=== PATIENT | female | born 1970 | race Caucasian/White ===

== ENCOUNTER 2017-03-23 00:56 | Inpatient (IN) | payer MEDICAID ==
[2017-03-23] MEDS ORDERED: 0.9 % SODIUM CHLORIDE 1,000 ML BAG IV ONE (01:20)
[2017-03-23 01:42] LABS: URINE APPEARANCE CLEAR; URINE BILIRUBIN NEGATIVE (NEGATIVE); URINE BLOOD NEGATIVE (NEGATIVE); URINE COLOR YELLOW; URINE GLUCOSE (UA) NEGATIVE (NEGATIVE); URINE KETONE NEGATIVE (NEGATIVE); URINE LEUKOCYTE ESTERASE NEGATIVE (NEGATIVE); URINE NITRITE NEGATIVE (NEGATIVE); URINE PROTEIN NEGATIVE (NEGATIVE); URINE UROBILINOGEN 0.2 E.U./dL (0.20 - 1.00)
[2017-03-23 01:42] LABS: BASO % 0.6 % (0-6); EOS % 1.5 % (0-6); GRAN % 60.3 % (47-80); HEMATOCRIT 38.5 % (35.0-47.0); HEMOGLOBIN 13.7 gm/dl (11.6-16.0); LYMPH % 25.5 % (16-45); MEAN CORPUSCULAR HEMOGLOBIN 35.6 pg (27-33); MEAN CORPUSCULAR HGB CONC 35.6 g/dl (32-36); MEAN PLATELET VOLUME 9.2 fl (7.4-10.4); MONO % 12.1 % (0-9); PLATELET COUNT 290 K/uL (130-400); RED BLOOD COUNT 3.85 M/uL (3.80-5.40); RED CELL DISTRIBUTION WIDTH 13.1 % (11.5-14.5); WHITE BLOOD COUNT W/O DIFF 8.8 K/uL (4.2-12.2)
[2017-03-23 01:54] LABS: ALB/GLOB RATIO 1.3 (1.1-1.8); ALBUMIN 4.1 gm/dL (3.5-5.0); ALKALINE PHOSPHATASE 130 U/L (38-126); ALT/SGPT 49 U/L (9-52); ANION GAP 13.6 (7-16); AST/SGOT 40 U/L (14-36); BILIRUBIN,TOTAL 0.42 mg/dL (0.2-1.3); BLOOD UREA NITROGEN 3 mg/dL (7-17); CARBON DIOXIDE 25.4 mmol/L (22-30); CREATININE 0.4 mg/dL (0.52-1.04); EST GLOMERULAR FILTRATION RATE > 60 ml/min; GLUCOSE,RANDOM 100 mg/dL (70-110); LIPASE 672 U/L (23-300); TOTAL PROTEIN 7.3 gm/dL (6.3-8.2)
--- NOTE | 2017-03-23 02:23 | Emergency Department Record ---
History of Present Illness - General Chief Complaint: Abdominal Pain Stated Complaint: CONSTIPATION ABD PAIN Time Seen by Provider: 03/23/17 01:16 Source: Patient, EMS Mode of Arrival: EMS Limitations: No limitations - History of Present Illness Initial Comments: pt has had abd pain for 2 days mostly in the midepigastric region. she denies vomiting/c/d. she drinks alcohol daily MD Complaint: Abdominal pain Onset/Timin -: Days(s) Location: Diffuse, Epigastric Radiation: None Migration to: No migration Severity: Mild Quality: Other Consistency: Constant Improves With: Rest Worsens With: Movement Associated Symptoms: Nausea - Related Data LMP (females 10-50): other Patient : No Home Medications Medication Instructions Recorded Confirmed Last Taken Ibuprofen [Ibuprofen] 1 tab PO ASDIR 03/23/17 03/23/17 Unknown Naproxen [Naproxen] 1 tab PO ASDIR 03/23/17 03/23/17 Unknown Allergies Allergy/AdvReac Type Severity Reaction Status Date / Time aspirin Allergy HIVES Verified 03/23/17 01:09 codeine Allergy HIVES Verified 03/23/17 01:09 "several different Allergy "I don't Uncoded 03/23/17 01:09 antibiotics" remember the names." Travel Screening - Travel/Exposure Within Last 30 Days Have you traveled within the last 30 days?: No - Travel/Exposure Within Last Year Have you traveled outside the [place] in the last year?: No - Additonal Travel Details Have you been exposed to anyone with a communicable illness?: No - Travel Symptoms Symptom Screening: None Review of Systems Reviewed: No additional complaints except as noted below Constitutional: Reports: As per HPI. Denies: Chills, Fever, Malaise, Night sweats, Weakness, Weight change Eyes: Reports: As per HPI. Denies: Eye discharge, Eye pain, Photophobia, Vision change ENT: Reports: As per HPI. Denies: Congestion, Dental pain, Ear pain, Epistaxis , Hearing loss, Throat pain Respiratory: Reports: As per HPI. Denies: Cough, Dyspnea, Hemoptysis, Stridor, Wheezes Cardiovascular: Reports: As per HPI. Denies: Arrhythmia, Chest pain, Dyspnea on exertion, Edema, Murmurs, Orthopnea, Palpitations, Paroxysmal nocturnal dyspnea, Rheumatic Fever, Syncope Endocrine: Reports: As per HPI. Denies: Fatigue, Heat or cold intolerance, Polydipsia, Polyuria Gastrointestinal: Reports: As per HPI. Denies: Abdominal pain, Constipation, Diarrhea, Hematemesis, Hematochezia, Melena, Nausea, Vomiting Genitourinary: Reports: As per HPI. Denies: Abnormal menses, Discharge, Dyspareunia, Dysuria, Frequency, Hematuria, Incontinence, Retention, Urgency Musculoskeletal: Reports: As per HPI. Denies: Arthralgia, Back pain, Gout, Joint swelling, Myalgia, Neck pain Skin: Reports: As per HPI. Denies: Bruising, Change in color, Change in hair/ nails, Lesions, Pruritus, Rash Neurological: Reports: As per HPI. Denies: Abnormal gait, Confusion, Headache, Numbness, Paresthesias, Seizure, Tingling, Tremors, Vertigo, Weakness Psychiatric: Reports: As per HPI. Denies: Anxiety, Auditory hallucinations, Depression, Homicidal thoughts, Suicidal thoughts, Visual hallucinations Hematological/Lymphatic: Reports: As per HPI. Denies: Anemia, Blood Clots, Easy bleeding, Easy bruising, Swollen glands Past Medical History - SOCIAL HISTORY Smoking Status: Current every day smoker Alcohol Use: Heavy Alcohol Use Comment: 6 beers/day Drug Use: Occasional Drug Use Detail:: Marijuana - RESPIRATORY Hx Respiratory Disorders: No - CARDIOVASCULAR Hx Cardio Disorders: No - NEURO Hx Neuro Disorders: No - GI Hx GI Disorders: No - Hx Genitourinary Disorders: No - ENDOCRINE Hx Endocrine Disorders: No - MUSCULOSKELETAL Hx Musculoskeletal Disorders: No Comment:: awaiting surgery on rt knee. - PSYCH Hx Psych Problems: No - HEMATOLOGY/ONCOLOGY Hx Hematology/Oncology Disorders: No Family Medical History Any Significant Family History?: Yes Family Hx Comment (NOT TO BE USED IN PLACE OF ITEMS BELOW): cancers Physical Exam - General General Appearance: Alert, Oriented x3, Cooperative, Mild distress - Head Head exam: Normal inspection - Eye Eye exam: Normal appearance, PERRL, EOMI Pupils: Normal accommodation - ENT ENT exam: Normal exam, Mucous membranes moist, Normal external ear exam, Normal orophraynx Ear exam: Normal external inspection. negative: External canal tenderness Nasal Exam: Normal inspection. negative: Discharge, Sinus tenderness Mouth exam: Normal external inspection, Tongue normal Teeth exam: Normal inspection. negative: Dental caries Throat exam: Normal inspection. negative: Tonsillar erythema, Tonsillar exudate - Neck Neck exam: Normal inspection, Full ROM. negative: Tenderness - Respiratory Respiratory exam: Normal lung sounds bilaterally. negative: Respiratory distress - Cardiovascular Cardiovascular Exam: Normal rhythm, Normal heart sounds, Tachycardia - GI/Abdominal GI/Abdominal exam: Soft, Normal bowel sounds, Tenderness (epigastric carlota) - Rectal Rectal exam: Deferred - exam: Deferred - Extremities Extremities exam: Normal inspection, Full ROM, Normal capillary refill. negative: Tenderness - Back Back exam: Reports: Normal inspection, Full ROM. Denies: Muscle spasm, Rash noted, Tenderness - Neurological Neurological exam: Alert, CN II-XII intact, Normal gait, Oriented X3 - Psychiatric Psychiatric exam: Normal affect, Normal mood - Skin Skin exam: Dry, Intact, Normal color, Warm Course Vital Signs 03/23/17 03/23/17 01:03 01:52 Temperature 98.6 F Pulse Rate 111 H Pulse Rate [ 99 H Pulse Ox Probe] Respiratory 20 20 Rate Blood Pressure 114/91 Blood Pressure 126/95 [Left Arm] Pulse Ox 96 100 Medical Decision Making - Lab Data Result diagrams: 03/23/17 01:35 03/23/17 01:35 Lab Results 03/23/17 03/23/17 03/23/17 Range/Units 01:35 01:35 01:35 WBC 8.8 (4.2-12.2) K/uL RBC 3.85 (3.80-5.40) M/uL Hgb 13.7 (11.6-16.0) gm/dl Hct 38.5 (35.0-47.0) % MCV 100.0 H (81-97) fl MCH 35.6 H (27-33) pg MCHC 35.6 (32-36) g/dl RDW 13.1 (11.5-14.5) % Plt Count 290 (130-400) K/uL MPV 9.2 (7.4-10.4) fl Gran % 60.3 (47-80) % Lymphocytes % 25.5 (16-45) % Monocytes % 12.1 H (0-9) % Eosinophils % 1.5 (0-6) % Basophils % 0.6 (0-6) % Sodium 137 (136-145) mmol/L Potassium 3.4 L (3.5-5.1) mmol/L Chloride 98 (98-107) mmol/L Carbon Dioxide 25.4 (22-30) mmol/L Anion Gap 13.6 (7-16) BUN 3 L (7-17) mg/dL Creatinine 0.4 L (0.52-1.04) mg/dL Estimated GFR > 60 ml/min Random Glucose 100 (70-110) mg/dL Calcium 8.9 (8.5-10.1) mg/dL Total Bilirubin 0.42 (0.2-1.3) mg/dL AST 40 H (14-36) U/L ALT 49 (9-52) U/L Alkaline Phosphatase 130 H (38-126) U/L Total Protein 7.3 (6.3-8.2) gm/dL Albumin 4.1 (3.5-5.0) gm/dL Globulin 3.2 (1.4-4.8) gm/dL Albumin/Globulin Ratio 1.3 (1.1-1.8) Lipase 672 H (23-300) U/L Urine Color Urine Appearance Urine pH (5.0-8.0) Ur Specific [place] (1.002-1.030) Urine Protein (NEGATIVE) Urine Glucose (UA) (NEGATIVE) Urine Ketones (NEGATIVE) Urine Blood (NEGATIVE) Urine Nitrite (NEGATIVE) Urine Bilirubin (NEGATIVE) Urine Urobilinogen (0.20 - 1.00) E.U./dL Ur Leukocyte Esterase (NEGATIVE) Ethyl Alcohol 0.213 H (0-0.010) g/dL 03/23/17 Range/Units 01:44 WBC (4.2-12.2) K/uL RBC (3.80-5.40) M/uL Hgb (11.6-16.0) gm/dl Hct (35.0-47.0) % MCV (81-97) fl MCH (27-33) pg MCHC (32-36) g/dl RDW (11.5-14.5) % Plt Count (130-400) K/uL MPV (7.4-10.4) fl Gran % (47-80) % Lymphocytes % (16-45) % Monocytes % (0-9) % Eosinophils % (0-6) % Basophils % (0-6) % Sodium (136-145) mmol/L Potassium (3.5-5.1) mmol/L Chloride (98-107) mmol/L Carbon Dioxide (22-30) mmol/L Anion Gap (7-16) BUN (7-17) mg/dL Creatinine (0.52-1.04) mg/dL Estimated GFR ml/min Random Glucose (70-110) mg/dL Calcium (8.5-10.1) mg/dL Total Bilirubin (0.2-1.3) mg/dL AST (14-36) U/L ALT (9-52) U/L Alkaline Phosphatase (38-126) U/L Total Protein (6.3-8.2) gm/dL Albumin (3.5-5.0) gm/dL Globulin (1.4-4.8) gm/dL Albumin/Globulin Ratio (1.1-1.8) Lipase (23-300) U/L Urine Color Yellow Urine Appearance Clear Urine pH 6.0 (5.0-8.0) Ur Specific [place] <= 1.005 (1.002-1.030) Urine Protein Negative (NEGATIVE) Urine Glucose (UA) Negative (NEGATIVE) Urine Ketones Negative (NEGATIVE) Urine Blood Negative (NEGATIVE) Urine Nitrite Negative (NEGATIVE) Urine Bilirubin Negative (NEGATIVE) Urine Urobilinogen 0.2 (0.20 - 1.00) E.U./dL Ur Leukocyte Esterase Negative (NEGATIVE) Ethyl Alcohol (0-0.010) g/dL Disposition Disposition: Admit Clinical Impression: Lung nodules, Alcohol abuse Acute pancreatitis Qualifiers: Pancreatitis type: alcohol induced Acute pancreatitis complication: unspecified Qualified Code(s): K85.20 - Alcohol induced acute pancreatitis without necrosis or infection Disposition: Still a Patient at [facility] Decision to Admit: Admit from ER Decision to Admit Date: 03/23/17 Decision to Admit Time: 02:24 Forms: Patient Portal Access Quality - Quality Measures Quality Measures: N/A - Blood Pressure Screening Does Patient Have Any of the Following: No Blood Pressure Classification: Hypertensive Reading Systolic Measurement: 114 Diastolic Measurement: 91 Screening for High Blood Pressure: < Pre-Hypertensive BP, F/U Documented > [ [id number]] Pre-Hypertensive Follow-up Interventions: Follow-up with rescreen every year.
[2017-03-23] MEDS ORDERED: ONDANSETRON HCL IV 4 MG/2 ML VIAL IVP PRN (03:24)
[2017-03-23] MEDS ORDERED: LORAZEPAM 2 MG/ML VIAL IV PRN (03:24)
[2017-03-23] MEDS ORDERED: THIAMINE HCL IV 100 MG, MVI, ADULT NO.4 WITH VIT K 10 ML in POTASSIUM CHL 20MEQ IN 1L N... IV ONE ×3 (03:24)
[2017-03-23] MEDS: HYDROMORPHONE HCL 1MG/ML **SYRINGE IVP PRN ×2 (12:29→19:34)
[2017-03-23] MEDS: 0.9 % SODIUM CHLORIDE 1000ML 1,000 ML IV PRN ×2 (12:30→20:31)
[2017-03-23] MEDS: NICOTINE 21 MG/24 HOUR PATCH TD SCH (12:31)
--- NOTE | 2017-03-23 12:50 | CT SCAN REPORT ---
EXAM: EMERGENCY CT SCAN OF THE ABDOMEN AND PELVIS WITHOUT CONTRAST HISTORY: GENERALIZED ABDOMINAL PAIN BEGINNING TWO DAYS AGO. TECHNIQUE: Axial CT scan of the abdomen and pelvis was performed without oral or IV contrast at the referring physician's request. A preliminary report was provided by [facility]. Comparison: None. FINDINGS: No calcified gallstones are seen within the gallbladder. There is some mild diffuse prominence of the gallbladder. There is hazy density in the pericholecystic adipose tissue which extends up around the duodenum in the region of the head of the pancreas. This area is relatively poorly evaluated due to the combination of a lack of oral and IV contrast. The possibility of cholecystitis, duodenal inflammation, or pancreatic mass/inflammation in the region of the head of the pancreas cannot be excluded. Follow-up post contrast CT abdomen with oral and IV contrast may be useful for further evaluation. There is heterogeneous density in the liver with some low attenuation foci posteriorly in the lateral segment of the left lobe, anteriorly in the medial segment of the left lobe, and in the periportal region. This may all represent variable fatty infiltration although is nonspecific in this noncontrast study. More superiorly in the lateral segment of the left lobe there is considerable area of low attenuation which may also represent some variable fatty infiltration although is nonspecific. Allowing for the limitations with lack of contrast, no definite splenic, adrenal , or renal mass identified. No intrarenal calculi identified on either side and no definite hydronephrosis or hydroureter identified. The ureters are difficult to follow in their nondilated state throughout the retroperitoneum and pelvis, but no definite ureteral calculus identified on either side and no bladder calculus evident. The appendix is visualized and appears of normal caliber with no appendicitis evident. There are probably some mildly prominent upper retroperitoneal/periportal nodes with this area again relatively poorly seen without contrast. There is a densely calcified granuloma in the left base. There are a couple other quite small nodules in the left lower lobe with the largest measuring only about 3 mm in size. There is also a more ground glass approximately 4.5 mm nodular density in the right base posteromedially. Follow-up chest CT in six months time suggested to reassess these. No free intraperitoneal air or free intraperitoneal fluid evident. Degenerative change in the lower lumbar spine. IMPRESSION: 1. SLIGHTLY THICK WALLED APPEARANCE OF THE GALLBLADDER. SURROUNDING INFLAMMATORY TYPE CHANGES IN THE REGION OF THE GALLBLADDER, SECOND PORTION OF THE DUODENUM, AND PANCREATIC HEAD PROBABLY WITH SOME ILL DEFINED ENLARGEMENT OF THE PANCREATIC HEAD. FINDINGS ARE NONSPECIFIC AND MAY REPRESENT INFLAMMATORY CHANGE DETAILED ABOVE ALTHOUGH PANCREATIC MASS COULD NOT BE EXCLUDED. THERE IS ALSO HETEROGENEOUS DENSITY IN THE LIVER PARTICULARLY IN THE LEFT LOBE WHICH MAY REPRESENT VARIABLE FATTY INFILTRATION ALTHOUGH IS NONSPECIFIC. FOLLOW-UP POST CONTRAST CT OF THE ABDOMEN WITH ORAL AND IV CONTRAST MAY BE USEFUL FOR FURTHER ASSESSMENT. SOME MILDLY ENLARGED UPPER RETROPERITONEAL/PERIPORTAL NODES CANNOT BE EXCLUDED WELL. 2. CALCIFIED GRANULOMA LEFT BASE. THERE ARE SOME NONCALCIFIED NODULAR DENSITIES IN THE BASES DESCRIBED ABOVE. FOLLOW-UP CHEST CT IN SIX MONTHS TIME MAY BE USEFUL. 3. NO DEFINITE URINARY TRACT CALCULI OR HYDRONEPHROSIS EVIDENT. JOB NUMBER: [id number] MTDD
--- NOTE | 2017-03-23 13:17 | History & Physical ---
History of Present Illness - Date of Service Date of Service for History & Physical: 03/23/17 - History of Present Illness Admitting Diagnosis: Acute pancreatitis, alcohol abuse, lung nodules History of Present Illness: Ms. Jarvis is a 46 y/o female who presents with a three day complaint of abdominal pain , nausea and vomiting. The patient's symptoms began acutely with pain described as 10/10 in severity, sharp over the left upper quadrant without radiation. Subsequently the patient experienced, nausea and 8-10 episodes of clear, non-bilous, non-bloody vomiting. She is unable to keep any food down and and does not describe any exacerbating or relieving factors. 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 Upon arriving to the ED the patient was started on IV fluids,pain medication and made npo. CT abdomen/pelvis is suggestive of inflammatory changes to the pancreas but no evidence of infection or necrosis. On initial bedside examination the patient is alert and oriented but with mild-moderate discomfort. At present she is hemodynamically stable and has no new complaints. Travel Screening - Travel/Exposure Within Last 30 Days Have you traveled within the last 30 days?: No - Travel/Exposure Within Last Year Have you traveled outside the [place] in the last year?: No - Additonal Travel Details Have you been exposed to anyone with a communicable illness?: No - Travel Symptoms Symptom Screening: None Review of Systems Reviewed: No additional complaints except as noted below Constitutional: Reports: As per HPI. Denies: Fever, Malaise, Night sweats, Weakness, Weight change Respiratory: Denies: Cough, Dyspnea, Hemoptysis, Stridor, Wheezes Cardiovascular: Denies: Chest pain, Dyspnea on exertion, Edema Endocrine: Denies: Fatigue, Heat or cold intolerance, Polydipsia, Polyuria Gastrointestinal: Reports: Abdominal pain (moderate pain on the left ), Nausea, Vomiting. Denies: Constipation, Diarrhea, Hematemesis Genitourinary: Reports: Incontinence. Denies: Abnormal menses, Discharge, Dyspareunia, Dysuria, Frequency, Hematuria, Urgency Skin: Denies: Pruritus, Rash Neurological: Denies: Abnormal gait, Headache, Numbness, Paresthesias Psychiatric: Denies: Anxiety Hematological/Lymphatic: Denies: Anemia, Blood Clots, Easy bruising Past Medical History - SOCIAL HISTORY Smoking Status: Current every day smoker Alcohol Use: Heavy (6 24oz beers daily ) Drug Use: None - RESPIRATORY Hx Respiratory Disorders: No - CARDIOVASCULAR Hx Cardio Disorders: No - NEURO Hx Neuro Disorders: No - GI Hx GI Disorders: No Hx Pancreatitis: Yes - Hx Genitourinary Disorders: No - ENDOCRINE Hx Endocrine Disorders: No - MUSCULOSKELETAL Hx Musculoskeletal Disorders: No Comment:: awaiting surgery on rt knee. - PSYCH Hx Psych Problems: No - HEMATOLOGY/ONCOLOGY Hx Hematology/Oncology Disorders: No Comment:: left lumpectomy 3 years ago. Non-malignant lesion as per patient. Family Medical History Any Significant Family History?: Yes Family Hx Comment (NOT TO BE USED IN PLACE OF ITEMS BELOW): cancers. Multiple sclerosis Hx Cancer: Mother (breast cancer @ age 44) H&P Meds/Allergies - Allergies Allergies: Allergies Allergy/AdvReac Type Severity Reaction Status Date / Time aspirin Allergy HIVES Verified 03/23/17 01:09 codeine Allergy HIVES Verified 03/23/17 01:09 "several different Allergy "I don't Uncoded 03/23/17 01:09 antibiotics" remember the names." - Home Medications Home Medications Medication Instructions Recorded Confirmed Last Taken Ibuprofen [Ibuprofen] 1 tab PO ASDIR 03/23/17 03/23/17 Unknown Naproxen [Naproxen] 1 tab PO ASDIR 03/23/17 03/23/17 Unknown - Active Medications Active Medications: Current Medications Hydromorphone HCl (Dilaudid) 0.5 mg IVP Q4HR PRN PRN Reason: Abdominal Pain Last Admin: 03/23/17 12:29 Dose: 0.5 mg Sodium Chloride () 1,000 mls @ 125 mls/hr IV .Q8H PRN PRN Reason: LARGE VOLUME IV Lorazepam (Ativan) 1 mg IV Q8H PRN PRN Reason: ANXIETY Nicotine (Nicotine 21mg) 1 patch TD Q24H PRATIBHA Last Admin: 03/23/17 12:31 Dose: 1 patch Ondansetron HCl (Zofran) 4 mg IVP Q4H PRN PRN Reason: NAUSEA Physical Exam - Vital Signs Vital Signs: Vital Signs - Last 24 Hrs Temp Pulse Pulse Resp BP BP Pulse Ox 03/23/17 09:00 20 03/23/17 06:14 99.1 F 97 H 18 113/90 95 09/06/17 05:07 99.1 F 89 18 115/71 96 03/23/17 03:18 92 H 20 117/80 96 - General General Appearance: Alert, Oriented x3, Cooperative, Mild distress Limitations: No limitations - Head Head exam: Normal inspection - Eye Eye exam: Normal appearance, PERRL, EOMI Pupils: Normal accommodation - ENT ENT exam: Normal exam, Mucous membranes moist, Normal external ear exam, Normal orophraynx Ear exam: Normal external inspection. negative: External canal tenderness Nasal Exam: Normal inspection. negative: Discharge, Sinus tenderness Mouth exam: Normal external inspection, Tongue normal Teeth exam: Normal inspection. negative: Dental caries Throat exam: Normal inspection. negative: Tonsillar erythema, Tonsillar exudate - Neck Neck exam: Normal inspection, Full ROM. negative: Tenderness - Respiratory Respiratory exam: Normal lung sounds bilaterally. negative: Respiratory distress - Cardiovascular Cardiovascular Exam: Normal rhythm, Normal heart sounds Peripheral Pulses: 2+: Radial (R), Radial (L) - GI/Abdominal GI/Abdominal exam: Soft, Normal bowel sounds, Tenderness (epigastrium, LUQ) - Rectal Rectal exam: Deferred - exam: Deferred - Extremities Extremities exam: Normal inspection, Full ROM, Normal capillary refill. negative: Tenderness - Back Back exam: Reports: Normal inspection, Full ROM. Denies: Muscle spasm, Rash noted, Tenderness - Neurological Neurological exam: Alert, CN II-XII intact, Normal gait, Oriented X3 - Psychiatric Psychiatric exam: Normal affect, Normal mood - Skin Skin exam: Dry, Intact, Normal color, Warm Results - Labs Result Diagrams: 03/23/17 01:35 03/23/17 01:35 Labs Last 24 Hours: Laboratory Results - last 24 hr 03/23/17 06:41 Lipase 612 H VTE H&P Assessment - Risk for VTE Risk for VTE: Yes Risk Level: Very Low Risk Assessment Date: 03/23/17 Risk Assessment Time: 13:46 VTE Orders Placed or Will Be Placed: Yes AMI H&P Plan - AMI AMI Reason For No ASA Ordered: Not Indicated - EKG Initial Date: 03/22/17 EKG: No Acute Changes Plan - Inpatient Certification Inpatient Certification: Admit to inpatient care: Acute pancreatitis, Etoh abuse. Estimated length of stay: 2-3 days I certify that my determination is in accordance with my understanding of Medicare requirements for reasonable and necessary inpatient services. 03/23/17 14:31 - Detailed Diagnosis and Plan (1) Acute pancreatitis Plan: -CT abdomen/pelvis - shows evidence of non-specific inflammatory changes, and fatty liver infiltration. Lipase 612 - advancement of diet with clear liquids today, will advance as tolerated. - cont pain meds IV, IV Nacl 0.9% @ 125ml/hr. - repeat electrolytes, replete K+, Mg in the am. Current Visit: Yes Status: Acute Qualifiers: Pancreatitis type: alcohol induced Acute pancreatitis complication: unspecified Qualified Code(s): K85.20 - Alcohol induced acute pancreatitis without necrosis or infection Base Code: K85.90 - ACUTE PANCREATITIS WITHOUT NECROSIS OR INFECTION, UNSP (2) Alcohol abuse Plan: - pt counseled on misuse/abuse of Etoh. She has stated as willingness to try and quit. Will discuss w/ SW regarding AA/support groups. - cont IV fluids: Nacl 0.9% w/ supplemented K+, order Mg and replete if necessary. - CIWA score: 2, no active evidence of acute withdrawal at this time. Will continue to monitor over the next 24 hrs. Current Visit: Yes Status: Acute Base Code: F10.10 - ALCOHOL ABUSE, UNCOMPLICATED (3) Tobacco abuse Plan: - 20/pk year smoking history. - newly found left lung opacities which appear granulomatous. - counseled on smoking cessation. - 6 months follow up and repeat imaging upon discharge. 03/23/17 15:03 Current Visit: Yes Status: Chronic Base Code: Z72.0 - TOBACCO USE (4) Lung nodules Plan: - granulomatous nodules in left lung bases. No previous imaging for comparison. - repeat xray/CT chest in 6 months for surveillance. 03/23/17 14:42 Current Visit: Yes Status: Acute Base Code: R91.8 - OTHER NONSPECIFIC ABNORMAL FINDING OF LUNG FIELD (5) Full code status Plan: Patient is FULL CODE Current Visit: Yes Status: Acute Base Code: Z78.9 - OTHER SPECIFIED HEALTH STATUS Comment: Disposition: patient currently stable and improving on clear liquids today. Will monitor over the next 24 hours to determine d/c plan. SW - AA/substance abuse support
[2017-03-23] MEDS: ENOXAPARIN 40 MG/0.4 ML SYR SQ SCH (17:22)
[2017-03-23] MEDS ORDERED: HEPARIN SODIUM 5,000 UNIT/ML VIAL SQ SCH (22:00)
[2017-03-24] MEDS: HYDROMORPHONE HCL 1MG/ML **SYRINGE IVP PRN ×5 (01:12→20:21)
[2017-03-24] MEDS: 0.9 % SODIUM CHLORIDE 1000ML 1,000 ML IV PRN ×2 (05:16→15:51)
[2017-03-24 07:27] LABS: ANION GAP 5.1 (7-16); CARBON DIOXIDE 24.9 mmol/L (22-30)
[2017-03-24] MEDS ORDERED: MAGNESIUM SULFATE 16 MEQ in 0.9 % SODIUM CHLORIDE 100ML 100 ML IV ONE (09:14)
[2017-03-24] MEDS: ENOXAPARIN 40 MG/0.4 ML SYR SQ SCH (10:04)
[2017-03-24] MEDS: NICOTINE 21 MG/24 HOUR PATCH TD SCH (10:05)
--- NOTE | 2017-03-24 10:07 | Physician Progress Note ---
Subjective - Date Date of Physician Progress Note: 03/24/17 - Subjective Subjective Comment: Continuing to have abdominal pain and nausea. Denies vomiting. Location: Left, Abdomen Radiation: Non-Radiating Severity scale (1-10): 4 Quality: Sharp Consistency: Constant Improves with: None, Medication Worsens with: Eating Associated symptoms: Nausea/vomiting (nausea but no vomiting within the last 24 hours. ). negative: Chest pain, Fever/chills Objective - Vital Signs Vital Signs: Vital Signs - Last 24 Hrs Temp Pulse Resp BP BP Pulse Ox 03/24/17 08:22 20 03/24/17 06:00 97.8 F 57 L 16 132/70 100 03/24/17 02:00 97.7 F 54 L 16 111/71 99 03/23/17 22:00 98.8 F 78 18 132/81 99 03/23/17 20:48 18 03/23/17 14:00 98.7 F 81 18 130/82 98 - General General Appearance: Alert, Oriented x3, Cooperative, Mild distress Limitations: No limitations - Head Head exam: Normal inspection - Eye Eye exam: PERRL, EOMI - ENT ENT exam: Mucous membranes moist - Neck Neck exam: Normal inspection, Tenderness - Respiratory Respiratory exam: Normal lung sounds bilaterally. negative: Respiratory distress - Cardiovascular Cardiovascular Exam: Normal rhythm, Normal heart sounds Peripheral Pulses: 2+: Radial (R), Radial (L) - GI/Abdominal GI/Abdominal exam: Soft, Normal bowel sounds, Tenderness (epigastrium, LUQ) - Rectal Rectal exam: Deferred - exam: Deferred - Extremities Extremities exam: Normal inspection - Neurological Neurological exam: Alert, Normal gait, Oriented X3 - Psychiatric Psychiatric exam: Normal affect, Normal mood. negative: Agitated - Skin Skin exam: Dry, Intact, Normal color, Warm Assessment and Plan - Assessment and Plan (1) Acute pancreatitis Plan: - pt has persistent abdominal pain and ongoing nausea, but denies vomiting overnight. - cont to advance diet as tolerate, currently tolerating clear liquids, nausea w/ soft diet this am. - cont IV fluids, IV Zofran 4mg Q4H PRN and Dilaudid Q4H PRN Current Visit: Yes Status: Acute Qualifiers: Pancreatitis type: alcohol induced Acute pancreatitis complication: unspecified Base Code: K85.90 - ACUTE PANCREATITIS WITHOUT NECROSIS OR INFECTION, UNSP Narrative Support Text: (2) Alcohol abuse Plan: - reports of agitation overnight, w/o other signs of withdrawal noted. - no medications administered and we will cont to monitor for signs of withdrawal. - CIWA score 0 Current Visit: Yes Status: Acute Base Code: F10.10 - ALCOHOL ABUSE, UNCOMPLICATED (3) Tobacco abuse Plan: - 20 pk/yr smoking history - advised as per initial assessment. - nicotine patches ordered Current Visit: Yes Status: Chronic Base Code: Z72.0 - TOBACCO USE (4) Lung nodules Plan: - CT notes left lung base opacifications described as granulomatous. - 6 month f/u recommended. Current Visit: Yes Status: Acute Base Code: R91.8 - OTHER NONSPECIFIC ABNORMAL FINDING OF LUNG FIELD (5) Full code status Current Visit: Yes Status: Acute Base Code: Z78.9 - OTHER SPECIFIED HEALTH STATUS Comment: Disposition: patient currently stable and improving with advancement to full liquids. Describes increasing nausea this morning. Will continue to assess for improvement. Results - Labs Result Diagrams: 03/23/17 01:35 03/24/17 06:24 Labs Last 24 Hours: Laboratory Results - last 24 hr 03/24/17 06:24 Sodium 135 L Potassium 3.9 Chloride 105 Carbon Dioxide 24.9 Anion Gap 5.1 L Magnesium 1.5 L DVT/PE Assessment - Risk for VTE Risk for VTE: No Risk Level: Very Low Risk Assessment Date: 03/23/17 Risk Assessment Time: 13:46 VTE Orders Placed or Will Be Placed: Yes - Active Medicaitons Current Medications: Current Medications Enoxaparin Sodium (Lovenox) 40 mg SQ DAILY [facility] Last Admin: 03/23/17 17:22 Dose: 40 mg Hydromorphone HCl (Dilaudid) 0.5 mg IVP Q4HR PRN PRN Reason: Abdominal Pain Last Admin: 03/24/17 05:52 Dose: 0.5 mg Sodium Chloride () 1,000 mls @ 125 mls/hr IV .Q8H PRN PRN Reason: LARGE VOLUME IV Last Admin: 03/24/17 05:16 Dose: 125 mls/hr Magnesium Sulfate 16 meq/ (Sodium Chloride) 104 mls @ 100 mls/hr IV NOW ONE Stop: 03/24/17 10:16 Lorazepam (Ativan) 1 mg IV Q8H PRN PRN Reason: ANXIETY Nicotine (Nicotine 21mg) 1 patch TD Q24H [facility] Last Admin: 03/23/17 12:31 Dose: 1 patch Ondansetron HCl (Zofran) 4 mg IVP Q4H PRN PRN Reason: NAUSEA AMI Plan - Labs Result Diagrams: 03/23/17 01:35 03/24/17 06:24
[2017-03-25] MEDS: 0.9 % SODIUM CHLORIDE 1000ML 1,000 ML IV PRN (03:36)
[2017-03-25] MEDS: HYDROMORPHONE HCL 1MG/ML **SYRINGE IVP PRN (07:12)
[2017-03-25 08:32] LABS: CARBON DIOXIDE 23.6 mmol/L (22-30)
[2017-03-25] MEDS: ENOXAPARIN 40 MG/0.4 ML SYR SQ SCH (10:43)
[2017-03-25] MEDS: NICOTINE 21 MG/24 HOUR PATCH TD SCH (10:45)
[2017-03-25] MEDS ORDERED: MAGNESIUM SULFATE 16 MEQ in 0.9 % SODIUM CHLORIDE 100ML 100 ML IV ONE (11:16)
[2017-03-25] MEDS ORDERED: ACETAMINOPHEN 500 MG TABLET PO PRN (11:36)
--- NOTE | 2017-03-25 11:47 | Physician Progress Note ---
Subjective - Date Date of Physician Progress Note: 03/25/17 - Subjective Subjective Comment: Abdominal pain improved. No nausea/no vomiting. Patient wanting to eat this morning. Location: Abdomen Severity scale (1-10): 2 Quality: Aching Consistency: Intermittent Objective - Vital Signs Vital Signs: Vital Signs - Last 24 Hrs Temp Pulse Resp BP Pulse Ox 03/25/17 08:33 20 03/25/17 05:39 98.2 F 70 18 97/63 98 03/25/17 02:00 97.9 F 66 18 111/72 100 03/24/17 22:00 98.1 F 65 18 90/64 99 03/24/17 21:00 75 18 03/24/17 18:00 98.8 F 69 18 99/69 100 03/24/17 14:00 98.3 F 60 18 124/76 99 - General General Appearance: Alert, Oriented x3, Cooperative, Mild distress Limitations: No limitations - Head Head exam: Normal inspection - Eye Eye exam: PERRL, EOMI Pupils: Normal accommodation - ENT ENT exam: Mucous membranes moist Ear exam: Normal external inspection, External canal tenderness Nasal Exam: Normal inspection. negative: Discharge Mouth exam: Normal external inspection Teeth exam: Normal inspection. negative: Dental caries Throat exam: Normal inspection. negative: Tonsillar erythema, Tonsillar exudate - Neck Neck exam: Normal inspection, Tenderness - Respiratory Respiratory exam: Normal lung sounds bilaterally. negative: Respiratory distress - Cardiovascular Cardiovascular Exam: Normal rhythm, Normal heart sounds Peripheral Pulses: 2+: Radial (R), Radial (L) - GI/Abdominal GI/Abdominal exam: Soft, Normal bowel sounds, Tenderness (mild) - Rectal Rectal exam: Deferred - exam: Deferred - Extremities Extremities exam: Normal inspection - Neurological Neurological exam: Alert, Normal gait, Oriented X3 - Psychiatric Psychiatric exam: Normal affect, Normal mood. negative: Agitated - Skin Skin exam: Dry, Intact, Normal color, Warm Assessment and Plan - Assessment and Plan (1) Acute pancreatitis Plan: - improved abdominal pain 1/10 this am. No more nausea/vomiting. - cont to advance diet as tolerate, currently tolerating full liquid today. - cont IV fluids, IV Zofran 4mg Q4H PRN and D/C Diluadid. Tylenol 500mg PO Q4 PRN. Current Visit: Yes Status: Acute Qualifiers: Pancreatitis type: alcohol induced Acute pancreatitis complication: unspecified Base Code: K85.90 - ACUTE PANCREATITIS WITHOUT NECROSIS OR INFECTION, UNSP Narrative Support Text: (2) Alcohol abuse Current Visit: Yes Status: Acute Base Code: F10.10 - ALCOHOL ABUSE, UNCOMPLICATED (3) Tobacco abuse Plan: - 20 pk/yr smoking history - advised as per initial assessment. - nicotine patches Q24H Current Visit: Yes Status: Chronic Base Code: Z72.0 - TOBACCO USE (4) Lung nodules Plan: - CT notes left lung base opacifications described as granulomatous. - 6 month f/u recommended. Current Visit: Yes Status: Acute Base Code: R91.8 - OTHER NONSPECIFIC ABNORMAL FINDING OF LUNG FIELD (5) Full code status Current Visit: Yes Status: Acute Base Code: Z78.9 - OTHER SPECIFIED HEALTH STATUS - Disposition Disposition: Anticipate D/C this afternoon or in the morning depending on PO tolerance later today. If not tolerating, then review and possible d/c tomorrow. Results - Labs Result Diagrams: 03/23/17 01:35 03/25/17 07:56 Labs Last 24 Hours: Laboratory Results - last 24 hr 03/25/17 07:56 Sodium 135 L Potassium 4.2 Carbon Dioxide 23.6 Magnesium 1.5 L DVT/PE Assessment - Risk for VTE Risk for VTE: No Risk Level: Very Low Risk Assessment Date: 03/23/17 Risk Assessment Time: 13:46 VTE Orders Placed or Will Be Placed: Yes - Active Medicaitons Current Medications: Current Medications Acetaminophen (Tylenol 500mg Tab) 500 mg PO Q4H PRN PRN Reason: Abdominal Pain Enoxaparin Sodium (Lovenox) 40 mg SQ DAILY [facility] Last Admin: 03/25/17 10:43 Dose: 40 mg Sodium Chloride () 1,000 mls @ 125 mls/hr IV .Q8H PRN PRN Reason: LARGE VOLUME IV Last Admin: 03/25/17 03:36 Dose: 125 mls/hr Magnesium Sulfate 16 meq/ (Sodium Chloride) 104 mls @ 100 mls/hr IV NOW ONE Stop: 03/25/17 12:18 Lorazepam (Ativan) 1 mg IV Q8H PRN PRN Reason: ANXIETY Nicotine (Nicotine 21mg) 1 patch TD Q24H [facility] Last Admin: 03/24/17 10:05 Dose: 1 patch Ondansetron HCl (Zofran) 4 mg IVP Q4H PRN PRN Reason: NAUSEA AMI Plan - Labs Result Diagrams: 03/23/17 01:35 03/25/17 07:56
[2017-03-25 12:19] LABS: ANION GAP 5.4 (7-16)
--- NOTE | 2017-03-25 20:06 | Discharge Summary ---
Providers Discharge Summary Date: 03/25/17 Date of admission: 03/23/17 02:50 Attending physician: YUNIER NAGY Physical Exam - Vital Signs Vital Signs: Vital Signs - Last 24 Hrs Temp Pulse Resp BP Pulse Ox 03/25/17 14:00 98.1 F 65 18 118/76 100 03/25/17 10:00 98.1 F 63 18 111/69 99 03/25/17 08:33 20 03/25/17 05:39 98.2 F 70 18 97/63 98 03/25/17 02:00 97.9 F 66 18 111/72 100 03/24/17 22:00 98.1 F 65 18 90/64 99 03/24/17 21:00 75 18 - General General Appearance: Alert, Oriented x3, Cooperative, Mild distress Limitations: No limitations - Head Head exam: Normal inspection - Eye Eye exam: PERRL, EOMI Pupils: Normal accommodation - ENT ENT exam: Mucous membranes moist Ear exam: Normal external inspection, External canal tenderness Nasal Exam: Normal inspection. negative: Discharge Mouth exam: Normal external inspection Teeth exam: Normal inspection. negative: Dental caries Throat exam: Normal inspection. negative: Tonsillar erythema, Tonsillar exudate - Neck Neck exam: Normal inspection, Tenderness - Respiratory Respiratory exam: Normal lung sounds bilaterally. negative: Respiratory distress - Cardiovascular Cardiovascular Exam: Normal rhythm, Normal heart sounds Peripheral Pulses: 2+: Radial (R), Radial (L) - GI/Abdominal GI/Abdominal exam: Soft, Normal bowel sounds, Tenderness (mild) - Rectal Rectal exam: Deferred - exam: Deferred - Extremities Extremities exam: Normal inspection - Back Back exam: Reports: Normal inspection, Full ROM. Denies: Muscle spasm, Rash noted, Tenderness - Neurological Neurological exam: Alert, Normal gait, Oriented X3 - Psychiatric Psychiatric exam: Normal affect, Normal mood. negative: Agitated - Skin Skin exam: Dry, Intact, Normal color, Warm Hospitalization - Hospitalization Admission Diagnosis: Acute pancreatitis, alcohol abuse, lung nodules - Problem List/Discharge Diagnosis (1) Acute pancreatitis Plan: - improved abdominal pain /10 this am. No more nausea/vomiting throughout the day. - diet gradually advanced and tolerated. Current Visit: Yes Status: Acute Discharge Diagnosis: Pancreatitis type: alcohol induced Acute pancreatitis complication: unspecified Base Code: K85.90 - ACUTE PANCREATITIS WITHOUT NECROSIS OR INFECTION, UNSP Narrative Support Text: (2) Alcohol abuse Plan: - no symptoms of withdrawal during hospital stay. PRN Ativan was ordered as precaution. - CIWA score 0 Current Visit: Yes Status: Acute Base Code: F10.10 - ALCOHOL ABUSE, UNCOMPLICATED (3) Tobacco abuse Current Visit: Yes Status: Chronic Base Code: Z72.0 - TOBACCO USE (4) Lung nodules Plan: - CT notes left lung base opacifications described as granulomatous. - 6 month f/u CXR/ CT recommended. Current Visit: Yes Status: Acute Base Code: R91.8 - OTHER NONSPECIFIC ABNORMAL FINDING OF LUNG FIELD (5) Full code status Current Visit: Yes Status: Acute Base Code: Z78.9 - OTHER SPECIFIED HEALTH STATUS - Disposition Anticipate D/C this afternoon or in the morning depending on PO tolerance later today. - Hospitalization Course Disposition: Home, Self-Care Hospital Course: Ms. Jarvis is a 46 y/o female who presents with acute onset sharp abdominal pain, nausea and vomiting. She has a history of chronic alcoholism, reportedly drinking 6 24 oz beers daily for many years. CT abdomen/pelvis showed inflammation of the pancreas without necrosis or signs of infection. On arrival to the ED the patient was started on IV fluids @ 125ml/hr, IV Dilaudid 0.5mg, Zofran 4mg Q4H PRN and Ativan IV PRN for possible Etoh withdrawal. DAy #1 the patient continued to have severe abdominal pain and was unable to tolerate and PO intake. Diet was advanced over the next 24 hours with moderate improvement in pain and resolution of nausea/vomiting. Labs showed hypomagnesemia 1.5 and she was repleted. Today, the patient's diet was gradually advanced throughout the day beginning with full liquids then to solid meals late in the afternoon. The patient's IV pain medication was discontinued and she was started on PO Tylenol PRN. This evening at approximately 19:40 the patient was discharged home in good stable condition and has been asked to follow up with her PCP. In addition, she is advised to discontinue all Etoh and smoking. Abnormal Labs: Abnormal Lab Results 03/23/17 03/24/17 03/25/17 Range/Units 06:41 06:24 07:56 Sodium 135 L 135 L (136-145) mmol/L Anion Gap 5.1 L 5.4 L (7-16) Magnesium 1.5 L 1.5 L (1.6-2.3) mg/dL Lipase 612 H (23-300) U/L Condition at Discharge: (1) Good Discharge Diagnosis: Acute Etoh induced pancreatitis Discharge Medications - Discharge Medications Home Medications: Ambulatory Orders Ibuprofen [Ibuprofen] 1 tab PO ASDIR 03/23/17 [Last Taken Unknown] Naproxen [Naproxen] 1 tab PO ASDIR 03/23/17 [Last Taken Unknown] Discharge Plan - Discharge Instructions Instructions: Pancreatitis (DC)
== END 2017-03-25 20:00 | disposition home or self-care (01) | DRG 440 ==
LOC: ER 00:56 → MEDSURG 02:50
PROVIDERS: ADMIT Family Medicine; ATTEND Family Medicine
DX: K85.20 Alcohol induced acute pancreatitis without necrosis or infection (principal); F10.10 Alcohol abuse, uncomplicated; Z72.0 Tobacco use; R91.8 Other nonspecific abnormal finding of lung field
CPT/HCPCS: 74176; 80051; 80053; 80320; 81003; 82150; 83690; 83735; 85025; 99223; 99233; 99239; 99285; J1170; J1650; J3411; J7030

== ENCOUNTER 2017-05-19 14:45 | Emergency (ER) | payer MEDICAID ==
--- NOTE | 2017-05-19 15:20 | Emergency Department Record ---
History of Present Illness - General Chief Complaint: General Stated Complaint: LUMP ON HEAD Time Seen by Provider: 05/19/17 14:57 Source: Patient Mode of Arrival: Ambulatory Limitations: No limitations - History of Present Illness Initial comments: The patient is here due to having a lump over her R zygoma area near the arch for 3 weeks. She denies any fall, trauma, or injury. She feels it may be affecting her vision and hearing on the R side. She denies any fever, chills, headache, balance issues, vomiting, or any recent illnesses. Onset/Timin -: Week(s) - Related Data Allergies Allergy/AdvReac Type Severity Reaction Status Date / Time aspirin Allergy HIVES Verified 05/19/17 14:50 codeine Allergy HIVES Verified 05/19/17 14:50 "several different Allergy "I don't Uncoded 03/23/17 01:09 antibiotics" remember the names." Travel Screening - Travel/Exposure Within Last 30 Days Have you traveled within the last 30 days?: No - Travel/Exposure Within Last Year Have you traveled outside the [place] in the last year?: No - Additonal Travel Details Have you been exposed to anyone with a communicable illness?: No - Travel Symptoms Symptom Screening: None Review of Systems Constitutional: Denies: Chills, Fever, Malaise Eyes: Denies: Eye discharge ENT: Denies: Congestion Respiratory: Denies: Cough, Dyspnea Past Medical History - SOCIAL HISTORY Smoking Status: Current every day smoker Alcohol Use: Heavy Drug Use: None - RESPIRATORY Hx Respiratory Disorders: No - CARDIOVASCULAR Hx Cardio Disorders: No - NEURO Hx Neuro Disorders: No - GI Hx GI Disorders: No Hx Pancreatitis: Yes - Hx Genitourinary Disorders: No - ENDOCRINE Hx Endocrine Disorders: No - MUSCULOSKELETAL Hx Musculoskeletal Disorders: No Comment:: awaiting surgery on rt knee. - PSYCH Hx Psych Problems: No - HEMATOLOGY/ONCOLOGY Hx Hematology/Oncology Disorders: No Comment:: left lumpectomy 3 years ago. Non-malignant lesion as per patient. Family Medical History Any Significant Family History?: Yes Family Hx Comment (NOT TO BE USED IN PLACE OF ITEMS BELOW): cancers. Multiple sclerosis Hx Cancer: Mother Physical Exam - General General Appearance: Alert, Oriented x3, Cooperative, No acute distress - Head Head exam: Atraumatic, Normocephalic, Normal inspection Image of Face/Head: 1 - Area of swelling. - Eye Eye exam: Normal appearance, PERRL, EOMI. negative: Conjunctival injection Visual acuity (L) = 20/: 50 Visual acuity (R) = 20/: 50 - ENT ENT exam: Other (There is a mild area of swelling just supeior to the R zygomatic arch area. There is mild tenderness present but no erythema or warmth. ). negative: Normal exam Throat exam: Normal inspection. negative: Tonsillar erythema, Tonsillar exudate - Neck Neck exam: Normal inspection, Full ROM. negative: Meningismus, Tenderness - Respiratory Respiratory exam: Normal lung sounds bilaterally. negative: Respiratory distress - Cardiovascular Cardiovascular Exam: Regular rate, Normal rhythm, Normal heart sounds - GI/Abdominal GI/Abdominal exam: Soft, Normal bowel sounds. negative: Tenderness - Extremities Extremities exam: Normal inspection, Full ROM, Normal capillary refill. negative: Tenderness - Neurological Neurological exam: Alert, Normal gait, Oriented X3, Reflexes normal. negative: Abnormal gait, Altered, Motor sensory deficit - Psychiatric Psychiatric exam: negative: Anxious - Skin Skin exam: negative: Rash Course Vital Signs 05/19/17 14:51 Temperature 97.9 F Pulse Rate 96 H Blood Pressure 113/85 - Reevaluation(s) Reevaluation #1: The patient is doing well. She does have an appointment with her PCP in 11 days. She is encouraged to keep it and possibly have it moved up. 05/19/17 15:41 Reevaluation #2: The patient was seen by her PCP Frieda Noel in the ED and was assured F/U for this condition. 05/19/17 16:09 Medical Decision Making - Data Complexity MDM Data: X-Ray Ordered and/or Reviewed - Lab Data Result diagrams: 05/19/17 15:56 05/19/17 15:56 - Radiology Data Radiology results: Report reviewed (CXR; Neg Head CT: soft tissue mass over the R quaker. No bony desctruction present.) Disposition Disposition: Discharge Clinical Impression: Superficial swelling of scalp Disposition: Home, Self-Care Condition: (2) Stable Instructions: Edema (ED) Additional Instructions: Please decrease your alcohol intake. Please see your PCP as planned and obtain a referral for a biopsy. Return to the ER for any new problems or issues. Forms: Patient Portal Access Time of Disposition: 16:28 Quality - Quality Measures Quality Measures: N/A - Blood Pressure Screening View Details: Yes Does Patient Have Any of the Following: No Blood Pressure Classification: Pre-Hypertensive BP Reading Systolic Measurement: 113 Diastolic Measurement: 85 Screening for High Blood Pressure: < Pre-Hypertensive BP, F/U Documented > [ [id number]] Pre-Hypertensive Follow-up Interventions: Referral to alternative/primary care provider.
[2017-05-19 16:03] LABS: BASO % 0.7 % (0-6); EOS % 2.5 % (0-6); GRAN % 45.6 % (47-80); HEMATOCRIT 39.1 % (35.0-47.0); HEMOGLOBIN 13.1 gm/dl (11.6-16.0); LYMPH % 43.7 % (16-45); MEAN CELL VOLUME 103.4 fl (81-97); MEAN CORPUSCULAR HGB CONC 33.5 g/dl (32-36); MEAN PLATELET VOLUME 8.7 fl (7.4-10.4); MONO % 7.5 % (0-9); PLATELET COUNT 412 K/uL (130-400); RED BLOOD COUNT 3.78 M/uL (3.80-5.40); RED CELL DISTRIBUTION WIDTH 14.5 % (11.5-14.5); WHITE BLOOD COUNT W/O DIFF 7.7 K/uL (4.2-12.2)
[2017-05-19 16:04] LABS: MEAN CORPUSCULAR HEMOGLOBIN 34.6 pg (27-33)
[2017-05-19 16:18] LABS: ALB/GLOB RATIO 1.2 (1.1-1.8); ALBUMIN 4.1 g/dL (4.0-5.0); ALKALINE PHOSPHATASE 89 U/L (35-104); ALT/SGPT 23 U/L (<33); AST/SGOT 39 U/L (10.0-35.0); BLOOD UREA NITROGEN 4 mg/dL (6-20); CREATININE 0.3 mg/dL (0.5-0.9); EST GLOMERULAR FILTRATION RATE > 60 mL/min; GLUCOSE,RANDOM 86 mg/dL (74-109); TOTAL PROTEIN 7.5 g/dL (6.6-8.7)
[2017-05-19 16:21] LABS: ALCOHOL 0.241 g/dL (0-0.010)
--- NOTE | 2017-05-20 07:32 | CT SCAN REPORT ---
EXAM: CT OF THE BRAIN WITHOUT CONTRAST HISTORY: PALPABLE LUMP. TECHNIQUE: Sequential axial images were obtained from the foramen magnum to the vertex without contrast administration. FINDINGS: The brain volume is normal. No large territorial infarct, hemorrhage , mass effect, or midline shift. No extraaxial fluid collection. There is a soft tissue mass in the right temporal bone measuring 2.6 cm x 1.6 cm. There is mild scalloping of the adjacent bone. Soft tissue diagnosis is recommended. IMPRESSION: 1. SOFT TISSUE MASS OVERLYING THE RIGHT TEMPORAL BONE. THIS MEASURES APPROXIMATELY 2.6 X 1.6 CM. TISSUE DIAGNOSIS IS RECOMMENDED. 2. NO INTRACRANIAL ABNORMALITY IS APPRECIATED. JOB NUMBER: [id number] MTDD
--- NOTE | 2017-05-20 07:36 | RADIOLOGY REPORT ---
EXAM: CHEST, TWO VIEWS HISTORY: DIFFICULTY BREATHING. TECHNIQUE: Frontal and lateral views of the chest were performed. FINDINGS: The heart size is normal. No infiltrate or pleural effusion. The osseous structures are normal. IMPRESSION: NO ACUTE DISEASE PROCESS. JOB NUMBER: [id number] [facility]
== END 2017-05-19 16:42 | disposition home or self-care (01) ==
LOC: ER 14:45
DX: R22.0 Localized swelling, mass and lump, head (principal); F17.210 Nicotine dependence, cigarettes, uncomplicated
CPT/HCPCS: 99283; 99284; 85025; 80053; 71020; 70450; G0480; 80320

== ENCOUNTER 2017-05-21 03:00 | Emergency (ER) | payer MEDICAID ==
--- NOTE | 2017-05-21 03:24 | Emergency Department Record ---
History of Present Illness - General Chief complaint: Abscess Stated complaint: ABSCESS Time Seen by Provider: 05/21/17 03:11 Source: Patient, EMS Mode of Arrival: EMS Limitations: No limitations - History of Present Illness Initial comments: pt brought in by ems from 25 minutes away for pain in a lump on the side of her face. she was seen for this lump2 days ago and f/u was arranged w a bx.. pt comes in tonight because it felt warm and painful though it does not appear so. complaint: Other Onset/Timin -: Hour(s) Location: Face Severity scale (1-10): 8 Quality: Aching Consistency: Constant, Getting worse Improves with: None Worsens with: None Associated symptoms: Denies other symptoms Treatments Prior to Arrival: None - Related Data Allergies Allergy/AdvReac Type Severity Reaction Status Date / Time aspirin Allergy HIVES Verified 05/19/17 14:50 codeine Allergy HIVES Verified 05/19/17 14:50 "several different Allergy "I don't Uncoded 03/23/17 01:09 antibiotics" remember the names." Travel Screening - Travel/Exposure Within Last 30 Days Have you traveled within the last 30 days?: No Review of Systems Reviewed: No additional complaints except as noted below Constitutional: Reports: As per HPI. Denies: Chills, Fever, Malaise, Night sweats, Weakness, Weight change Eyes: Reports: As per HPI. Denies: Eye discharge, Eye pain, Photophobia, Vision change ENT: Reports: As per HPI. Denies: Congestion, Dental pain, Ear pain, Epistaxis , Hearing loss, Throat pain Respiratory: Reports: As per HPI. Denies: Cough, Dyspnea, Hemoptysis, Stridor, Wheezes Cardiovascular: Reports: As per HPI. Denies: Arrhythmia, Chest pain, Dyspnea on exertion, Edema, Murmurs, Orthopnea, Palpitations, Paroxysmal nocturnal dyspnea, Rheumatic Fever, Syncope Endocrine: Reports: As per HPI. Denies: Fatigue, Heat or cold intolerance, Polydipsia, Polyuria Gastrointestinal: Reports: As per HPI. Denies: Abdominal pain, Constipation, Diarrhea, Hematemesis, Hematochezia, Melena, Nausea, Vomiting Genitourinary: Reports: As per HPI. Denies: Abnormal menses, Discharge, Dyspareunia, Dysuria, Frequency, Hematuria, Incontinence, Retention, Urgency Musculoskeletal: Reports: As per HPI. Denies: Arthralgia, Back pain, Gout, Joint swelling, Myalgia, Neck pain Skin: Reports: As per HPI. Denies: Bruising, Change in color, Change in hair/ nails, Lesions, Pruritus, Rash Neurological: Reports: As per HPI. Denies: Abnormal gait, Confusion, Headache, Numbness, Paresthesias, Seizure, Tingling, Tremors, Vertigo, Weakness Psychiatric: Reports: As per HPI. Denies: Anxiety, Auditory hallucinations, Depression, Homicidal thoughts, Suicidal thoughts, Visual hallucinations Hematological/Lymphatic: Reports: As per HPI. Denies: Anemia, Blood Clots, Easy bleeding, Easy bruising, Swollen glands Past Medical History - SOCIAL HISTORY Smoking Status: Current every day smoker Alcohol Use: Heavy Drug Use: None - RESPIRATORY Hx Respiratory Disorders: No - CARDIOVASCULAR Hx Cardio Disorders: No - NEURO Hx Neuro Disorders: No - GI Hx GI Disorders: No Hx Pancreatitis: Yes - Hx Genitourinary Disorders: No - ENDOCRINE Hx Endocrine Disorders: No - MUSCULOSKELETAL Hx Musculoskeletal Disorders: No Comment:: awaiting surgery on rt knee. - PSYCH Hx Psych Problems: No - HEMATOLOGY/ONCOLOGY Hx Hematology/Oncology Disorders: No Comment:: left lumpectomy 3 years ago. Non-malignant lesion as per patient. Family Medical History Any Significant Family History?: Yes Family Hx Comment (NOT TO BE USED IN PLACE OF ITEMS BELOW): cancers. Multiple sclerosis Hx Cancer: Mother Physical Exam - General General Appearance: Alert, Oriented x3, Cooperative, No acute distress, Other ( intoxicated) - Head Head exam: Normal inspection Image of Face/Head: 1 - mass, no erythema - Eye Eye exam: Normal appearance, PERRL, EOMI Pupils: Normal accommodation - ENT ENT exam: Normal exam, Mucous membranes moist, Normal external ear exam, Normal orophraynx Ear exam: Normal external inspection. negative: External canal tenderness Nasal Exam: Normal inspection. negative: Discharge, Sinus tenderness Mouth exam: Normal external inspection, Tongue normal Teeth exam: Normal inspection. negative: Dental caries Throat exam: Normal inspection. negative: Tonsillar erythema, Tonsillar exudate - Neck Neck exam: Normal inspection, Full ROM. negative: Tenderness - Respiratory Respiratory exam: Normal lung sounds bilaterally. negative: Respiratory distress - Cardiovascular Cardiovascular Exam: Regular rate, Normal rhythm, Normal heart sounds - GI/Abdominal GI/Abdominal exam: Soft, Normal bowel sounds. negative: Tenderness - Rectal Rectal exam: Deferred - exam: Deferred - Extremities Extremities exam: Normal inspection, Full ROM, Normal capillary refill. negative: Tenderness - Back Back exam: Reports: Normal inspection, Full ROM. Denies: Muscle spasm, Rash noted, Tenderness - Neurological Neurological exam: Alert, CN II-XII intact, Normal gait, Oriented X3 - Psychiatric Psychiatric exam: Normal affect, Normal mood - Skin Skin exam: Dry, Intact, Normal color, Warm Course Vital Signs 05/21/17 03:05 Temperature 97.9 F Pulse Rate [ 88 Pulse Ox Probe] Respiratory 14 Rate Blood Pressure 109/86 [Left Arm] Pulse Ox 95 - Reevaluation(s) Reevaluation #1: 05/21/17 06:47 pt has done well. resting. care turned over to dr ryder Medical Decision Making - Lab Data Result diagrams: 05/21/17 03:23 05/21/17 03:23 Disposition Forms: Patient Portal Access Quality - Quality Measures Quality Measures: N/A - Blood Pressure Screening Does Patient Have Any of the Following: No Blood Pressure Classification: Pre-Hypertensive BP Reading Systolic Measurement: 109 Diastolic Measurement: 86 Screening for High Blood Pressure: < Pre-Hypertensive BP, F/U Documented > [ [id number]] Pre-Hypertensive Follow-up Interventions: Follow-up with rescreen every year.
[2017-05-21 03:27] LABS: HEMATOCRIT 37.4 % (35.0-47.0); HEMOGLOBIN 12.7 gm/dl (11.6-16.0); MEAN CELL VOLUME 101.9 fl (81-97); MEAN CORPUSCULAR HEMOGLOBIN 34.6 pg (27-33); MEAN PLATELET VOLUME 8.7 fl (7.4-10.4); PLATELET COUNT 416 K/uL (130-400); RED BLOOD COUNT 3.67 M/uL (3.80-5.40); RED CELL DISTRIBUTION WIDTH 14.4 % (11.5-14.5); WHITE BLOOD COUNT W/O DIFF 9.2 K/uL (4.2-12.2)
[2017-05-21] MEDS: MVI, ADULT NO.4 WITH VIT K 10 ML, THIAMINE HCL IV 100 MG in 0.9 % SODIUM CHLORIDE 1000M... IV SCH ×3 (03:30)
[2017-05-21 03:48] LABS: ALB/GLOB RATIO 1.3 (1.1-1.8); ALBUMIN 4.1 g/dL (4.0-5.0); ALCOHOL 0.338 g/dL (0-0.010); ALKALINE PHOSPHATASE 90 U/L (35-104); ALT/SGPT 22 U/L (<33); AST/SGOT 43 U/L (10.0-35.0); BLOOD UREA NITROGEN 6 mg/dL (6-20); CREATININE 0.3 mg/dL (0.5-0.9); EST GLOMERULAR FILTRATION RATE > 60 mL/min; GLUCOSE,RANDOM 103 mg/dL (74-109); TOTAL PROTEIN 7.3 g/dL (6.6-8.7)
[2017-05-21 03:58] LABS: ANISOCYTOSIS 1+; PLATELET ESTIMATE NORMAL (NORMAL)
--- NOTE | 2017-05-21 09:15 | Emergency Department Record ---
History of Present Illness - General Chief complaint: Abscess Stated complaint: ABSCESS Time Seen by Provider: 05/21/17 03:11 Source: Patient, EMS Mode of Arrival: EMS Limitations: No limitations - History of Present Illness Initial comments: took over from Dr Guardado at 7 am. Acute intoxication with mass on the right side of face and she has a biopsy scheduled for May 30 through [facility]. patient ate breakfast and she drank alot last night and typically she drinks 6 beers per day. MD complaint: Other Onset/Timin -: Hour(s) Location: Face Severity scale (1-10): 8 Quality: Aching Consistency: Constant, Getting worse Improves with: None Worsens with: None Associated symptoms: Denies other symptoms Treatments Prior to Arrival: None - Related Data Allergies Allergy/AdvReac Type Severity Reaction Status Date / Time aspirin Allergy HIVES Verified 05/19/17 14:50 codeine Allergy HIVES Verified 05/19/17 14:50 "several different Allergy "I don't Uncoded 03/23/17 01:09 antibiotics" remember the names." Travel Screening - Travel/Exposure Within Last 30 Days Have you traveled within the last 30 days?: No Review of Systems Reviewed: No additional complaints except as noted below Constitutional: Reports: As per HPI. Denies: Chills, Fever, Malaise, Night sweats, Weakness, Weight change Eyes: Reports: As per HPI. Denies: Eye discharge, Eye pain, Photophobia, Vision change ENT: Reports: As per HPI, Other (mass on the side of face right side and it is hard and not mobile . She smokes cigs). Denies: Congestion, Dental pain, Ear pain, Epistaxis, Hearing loss, Throat pain Respiratory: Reports: As per HPI. Denies: Cough, Dyspnea, Hemoptysis, Stridor, Wheezes Cardiovascular: Reports: As per HPI. Denies: Arrhythmia, Chest pain, Dyspnea on exertion, Edema, Murmurs, Orthopnea, Palpitations, Paroxysmal nocturnal dyspnea, Rheumatic Fever, Syncope Endocrine: Reports: As per HPI. Denies: Fatigue, Heat or cold intolerance, Polydipsia, Polyuria Gastrointestinal: Reports: As per HPI. Denies: Abdominal pain, Constipation, Diarrhea, Hematemesis, Hematochezia, Melena, Nausea, Vomiting Genitourinary: Reports: As per HPI. Denies: Abnormal menses, Discharge, Dyspareunia, Dysuria, Frequency, Hematuria, Incontinence, Retention, Urgency Musculoskeletal: Reports: As per HPI. Denies: Arthralgia, Back pain, Gout, Joint swelling, Myalgia, Neck pain Skin: Reports: As per HPI. Denies: Bruising, Change in color, Change in hair/ nails, Lesions, Pruritus, Rash Neurological: Reports: As per HPI. Denies: Abnormal gait, Confusion, Headache, Numbness, Paresthesias, Seizure, Tingling, Tremors, Vertigo, Weakness Psychiatric: Reports: As per HPI. Denies: Anxiety, Auditory hallucinations, Depression, Homicidal thoughts, Suicidal thoughts, Visual hallucinations Hematological/Lymphatic: Reports: As per HPI. Denies: Anemia, Blood Clots, Easy bleeding, Easy bruising, Swollen glands Past Medical History - SOCIAL HISTORY Smoking Status: Current every day smoker Alcohol Use: Heavy Drug Use: None - RESPIRATORY Hx Respiratory Disorders: No - CARDIOVASCULAR Hx Cardio Disorders: No - NEURO Hx Neuro Disorders: No - GI Hx GI Disorders: No Hx Pancreatitis: Yes - Hx Genitourinary Disorders: No - ENDOCRINE Hx Endocrine Disorders: No - MUSCULOSKELETAL Hx Musculoskeletal Disorders: No Comment:: awaiting surgery on rt knee. - PSYCH Hx Psych Problems: No - HEMATOLOGY/ONCOLOGY Hx Hematology/Oncology Disorders: No Comment:: left lumpectomy 3 years ago. Non-malignant lesion as per patient. Family Medical History Any Significant Family History?: Yes Family Hx Comment (NOT TO BE USED IN PLACE OF ITEMS BELOW): cancers. Multiple sclerosis Hx Cancer: Mother Physical Exam - General General Appearance: Alert, Oriented x3, Cooperative, No acute distress Limitations: No limitations - Head Head exam: Normal inspection - Eye Eye exam: Normal appearance, PERRL Pupils: Normal accommodation - ENT ENT exam: Mucous membranes moist, Normal external ear exam, Normal orophraynx, TM's normal bilaterally, Other (hard mass right side of face above the angle of mandible not red, not mobile. She is opening mouth without problems and swallowing without problems .She ate breakfast in the ED) Ear exam: Normal external inspection. negative: External canal tenderness Nasal Exam: Normal inspection. negative: Discharge, Sinus tenderness Mouth exam: Normal external inspection, Tongue normal Teeth exam: Normal inspection. negative: Dental caries Throat exam: Normal inspection. negative: Tonsillar erythema, Tonsillar exudate - Neck Neck exam: Normal inspection, Full ROM. negative: Tenderness - Respiratory Respiratory exam: Normal lung sounds bilaterally. negative: Respiratory distress - Cardiovascular Cardiovascular Exam: Regular rate, Normal rhythm, Normal heart sounds - GI/Abdominal GI/Abdominal exam: Soft, Normal bowel sounds. negative: Tenderness - Rectal Rectal exam: Deferred - exam: Deferred - Extremities Extremities exam: Normal inspection, Full ROM, Normal capillary refill. negative: Tenderness - Back Back exam: Reports: Normal inspection, Full ROM. Denies: Muscle spasm, Rash noted, Tenderness - Neurological Neurological exam: Alert, Normal gait, Oriented X3, Reflexes normal - Psychiatric Psychiatric exam: Normal affect, Normal mood - Skin Skin exam: Dry, Intact, Normal color, Warm Course Vital Signs 05/21/17 05/21/17 03:05 09:05 Temperature 97.9 F 97.7 F Pulse Rate [ 88 92 H Pulse Ox Probe] Respiratory 14 18 Rate Blood Pressure 109/86 113/67 [Left Arm] Pulse Ox 95 96 ambulating without a problem and talking clearly. Medical Decision Making - Lab Data Result diagrams: 05/21/17 03:23 05/21/17 03:23 Lab Results 05/21/17 05/21/17 Range/Units 03:23 03:23 WBC 9.2 (4.2-12.2) K/uL RBC 3.67 L (3.80-5.40) M/uL Hgb 12.7 (11.6-16.0) gm/dl Hct 37.4 (35.0-47.0) % MCV 101.9 H (81-97) fl MCH 34.6 H (27-33) pg MCHC 34.0 (32-36) g/dl RDW 14.4 (11.5-14.5) % Plt Count 416 H (130-400) K/uL MPV 8.7 (7.4-10.4) fl Neutrophils % 33.0 L (47-80) % Eosinophils % Not Reportable Basophils % Not Reportable Lymphocytes 56.0 H (16-45) % Monocytes 10.0 H (0-9) % Platelet Estimate Normal (NORMAL) Anisocytosis 1+ Macrocytosis 1+ Eosinophil Count 1.0 (0-6) % Sodium 135 L (136-145) mmol/L Potassium 3.8 (3.4-4.5) mmol/L Chloride 94 L (98-107) mmol/L Carbon Dioxide 22.0 (22-29) mmol/L Anion Gap 19.0 H (7-16) BUN 6 (6-20) mg/dL Creatinine 0.3 L (0.5-0.9) mg/dL Estimated GFR > 60 mL/min Random Glucose 103 (74-109) mg/dL Calcium 8.6 (8.6-10.0) mg/dL Total Bilirubin 0.20 (0.2-1.0) mg/dL AST 43 H (10.0-35.0) U/L ALT 22 (<33) U/L Alkaline Phosphatase 90 (35-104) U/L Total Protein 7.3 (6.6-8.7) g/dL Albumin 4.1 (4.0-5.0) g/dL Globulin 3.2 (1.4-4.8) gm/dL Albumin/Globulin Ratio 1.3 (1.1-1.8) Ethyl Alcohol 0.338 H (0-0.010) g/dL Disposition Clinical Impression: Mass of face Acute alcohol intoxication Qualifiers: Complication of substance-induced condition: uncomplicated Qualified Code(s): F10.929 - Alcohol use, unspecified with intoxication, unspecified Disposition: Home, Self-Care Condition: (1) Good Instructions: Abuse of Alcohol (ED) Additional Instructions: follow up with Dr. Jacqueline Noel next week to see if biopsy appointment can be moved up. stop alcohol follow up with a substance abuse program to stop alcohol Forms: Patient Portal Access Time of Disposition: 10:04 Quality - Quality Measures Quality Measures: N/A - Blood Pressure Screening Does Patient Have Any of the Following: No Blood Pressure Classification: Normal BP Reading Systolic Measurement: 113 Diastolic Measurement: 67 Screening for High Blood Pressure: < Normal BP, F/U Not Required > [G8783]
== END 2017-05-21 11:00 | disposition home or self-care (01) ==
LOC: ER 03:00
DX: R22.0 Localized swelling, mass and lump, head (principal); F10.129 Alcohol abuse with intoxication, unspecified; Y90.8 Blood alcohol level of 240 mg/100 ml or more
CPT/HCPCS: 99284 ×2; 96365; 80053; 85027; G0480; 80320; J3411; J7030

== ENCOUNTER 2017-06-27 07:42 | Day surgery (SDC) | payer MEDICAID ==
[~2017-06-27 07:42] MED LIST: ACETAMINOPHEN 1,000 MG/100 ML BTL IV ONE; CEFAZOLIN 1 Gram 1 GM/50 ML BAG IVPB ONE
[2017-06-27] MEDS ORDERED: HYDROCODONE/APAP 5/325MG TABLET PO ONE (07:43)
[2017-06-27] MEDS ORDERED: PROPOFOL 10 MG/ML VIAL IV ONE (07:43)
[2017-06-27] MEDS ORDERED: BUPIVACAINE 0.75% W/EPI MPF 30ML VIAL IVP ONE (07:43)
[2017-06-27] MEDS ORDERED: *PACU ONLY* KETAMINE HCL 10 MG/ML (20ML) VIAL IV ONE (07:43)
[2017-06-27] MEDS ORDERED: MIDAZOLAM HCL 2MG/2ML VIAL IV ONE (07:43)
[2017-06-27] MEDS ORDERED: LIDOCAINE 2% MDV (20MG/ML) 20ML VIAL IV ONE (07:43)
[2017-06-27] MEDS ORDERED: FENTANYL PF 100MCG/2ML VIAL IV ONE (07:43)
--- NOTE | 2017-06-28 11:10 | Operative Note ---
DATE OF SURGERY: 06/27/2017 Surgeon: Hubert Milner DO PREOPERATIVE DIAGNOSIS: Right shoulder mass, right axillary mass. POSTOPERATIVE DIAGNOSIS: Right shoulder mass, right axillary mass. OPERATION: Excision of right shoulder and axillary masses. Indication: The patient is a 47-year-old female whom I recently saw in the clinic about a month ago for a mass along her right temporal region. This had the appearance of a malignancy with scalloping of her right temporal bone. She was sent to ENT and further workup was done. Imaging studies do reveal lymphadenopathy and multiple subcu nodules in chest and abdomen. Clinically she has multiple nodules palpable on the skin. These do have the suspicion of metastatic disease. Two easy spots to biopsy were right shoulder and right axilla. PROCEDURE: At this time, she was taken to the operating room and placed in a supine position. Local IV sedation was given per the department of anesthesia. The patient's shoulder and axillae were prepped and draped in the usual sterile fashion. The area over each mass was anesthetized with a total of 5 mL of 0.25% Sensorcaine with epinephrine. Starting at the shoulder, a 2 cm incision was made. This was carried down to a necrotic mass which was dissected free from surrounding tissue. This was passed off the field and sent for permanent. This wound was closed with 3-0 and 4-0 Vicryl. Attention now turned to the right axilla where the area over the mass was anesthetized with additional 4 mL of 0.25% Sensorcaine with epinephrine. A curvilinear incision was made. This was carried down to the mass. This was dissected free and sent fresh. The right shoulder mass measured about 3 x 2 cm. The right axilla mass was about 4 x 2 cm. Both into the subcu. The wounds were closed with 3-0 and 4-0 Vicryl. Final pathology pending. CC: ESTRELLA Beltran
== END 2017-06-27 12:00 | disposition home or self-care (01) ==
LOC: SUR 07:42
PROVIDERS: ATTEND Surgery
DX: C79.2 Secondary malignant neoplasm of skin (principal); R91.8 Other nonspecific abnormal finding of lung field; Z72.0 Tobacco use
CPT/HCPCS: 11606; 12032; 00400; J3010; J0690; J3490